=== PATIENT | female | born 1985 | race Two or more races ===

== ENCOUNTER 2018-10-01 09:00 | Inpatient (IN) | payer BC ==
[2018-10-01] MEDS: LACTATED RINGER'S 1,000 ML IV ×2 (09:30→22:58)
[2018-10-01] MEDS ORDERED: CEFAZOLIN 2 GM/50 ML (PMX) 50 ML IVPB ×2 (09:50→10:00)
[2018-10-01] MEDS ORDERED: EPHEDrine 25 MG/5 ML SYG (09:51)
[2018-10-01] MEDS ORDERED: PHENYLephrine (100 MCG/ML) 5ML SYG (09:51)
[2018-10-01] MEDS ORDERED: OXYTOCIN 30 UNITS/LR 500 ML BAG IV (09:51)
[2018-10-01] MEDS ORDERED: morphine SULFATE/PF (10 MG/10 ML) INJ (09:51)
[2018-10-01 09:53] LABS: ADD MAN DIFF? NO
[2018-10-01 09:54] LABS: WHITE BLOOD COUNT 7.3 10^3/ul (4.8-10.8)
[2018-10-01 09:54] LABS: BASOPHILS % 0.4 % (0.0-2.0); EOSINOPHILS # 0.1 10^3/ul (0.0-0.5); EOSINOPHILS % 1.8 % (0.0-7.0); HEMATOCRIT 35.9 % (37.0-47.0); HEMOGLOBIN 11.9 g/dl (12.0-16.0); LYMPHOCYTES # 1.3 10^3/ul (0.8-2.9); LYMPHOCYTES % 17.2 % (15.0-51.0); MEAN CORPUSCULAR HEMOGLOBIN 31.2 pg (29.0-33.0); MEAN CORPUSCULAR HGB CONC 33.1 g/dl (32.0-37.0); MEAN PLATELET VOLUME 12.7 fl (7.4-10.4); MONOCYTE # 0.4 10^3/ul (0.3-0.9); MONOCYTES % 5.8 % (0.0-11.0); NEUTROPHIL # 5.4 10^3/ul (1.6-7.5); NEUTROPHILS % 74.5 % (39.0-77.0); PLATELET COUNT 127 10^3/UL (140-415); RED BLOOD COUNT 3.82 10^6/ul (4.20-5.40); RED CELL DISTRIBUTION WIDTH 13.1 % (11.5-14.5)
[2018-10-01] MEDS ORDERED: MISOPROSTOL 200 MCG TAB PR ×2 (10:00→11:30)
[2018-10-01] MEDS ORDERED: CARBOPROST 250 MCG INJ IM ×2 (10:00→11:30)
[2018-10-01] MEDS ORDERED: OXYTOCIN 30 UNITS/LR 500 ML IV ×2 (10:00→11:30)
[2018-10-01] MEDS ORDERED: METHYLERGONOVINE 0.2 MG INJ IM ×2 (10:00→11:30)
[2018-10-01 10:13] LABS: INR 0.86; PARTIAL THROMBOPLASTIN TIME 28.6 Sec (23.0-35.0); PROTIME 11.8 Sec (11.9-14.9); PT RATIO 0.9
[2018-10-01] MEDS ORDERED: METOCLOPRAMIDE 10 MG INJ IV (10:30)
[2018-10-01] MEDS ORDERED: FENTAnyl 50 MCG/ML VIAL IV ×2 (10:30)
[2018-10-01] MEDS ORDERED: DIPHENHYDRAMINE 50 MG INJ IV ×2 (10:30)
[2018-10-01] MEDS ORDERED: HYDROmorphONE 1 MG/5 ML IV SYRINGE IV ×2 (10:30)
[2018-10-01] MEDS ORDERED: ONDANSETRON 4 MG INJ IV ×2 (10:30)
[2018-10-01] MEDS ORDERED: KETOROLAC 30 MG INJ IV (10:30)
[2018-10-01] MEDS ORDERED: ALBUTEROL 0.083% (NEB) 2.5 MG/3 ML AMP HHN (10:30)
[2018-10-01] MEDS ORDERED: NALOXONE (0.4 MG/ML) INJ IV (10:30)
[2018-10-01] MEDS ORDERED: HYDROmorphONE 0.5 MG/0.5 ML SYG IV ×2 (10:30)
[2018-10-01] MEDS ORDERED: ONDANSETRON 4 MG INJ (10:31)
[2018-10-01] MEDS: OXYTOCIN 30 UNITS/LR 500 ML IV ×2 (11:21→12:32)
[2018-10-01 11:28] LABS: HEPATITIS B SURFACE ANTIGEN NEGATIVE (NEGATIVE)
[2018-10-01] MEDS ORDERED: NACL 0.9% 3 ML SYG IV (11:30)
[2018-10-01] MEDS: CEFAZOLIN 2 GM/50 ML (PMX) 50 ML IVPB ×2 (11:30→19:49)
[2018-10-01] MEDS: IBUPROFEN 600 MG TAB PO ×2 (12:00→18:00)
[2018-10-01] MEDS: LANOLIN HPA 1 PKT TOP (19:49)
[2018-10-01 22:15] LABS: RAPID PLASMA REAGIN NONREACTIVE (NR)
[2018-10-02] MEDS: KETOROLAC 30 MG INJ IV ×2 (03:12→09:57)
[2018-10-02] MEDS: CEFAZOLIN 2 GM/50 ML (PMX) 50 ML IVPB ×2 (03:52→09:56)
[2018-10-02] MEDS: IBUPROFEN 600 MG TAB PO ×5 (06:00→23:48)
[2018-10-02] MEDS: LACTATED RINGER'S 1,000 ML IV (06:00)
[2018-10-02 08:13] LABS: ADD MAN DIFF? NO
[2018-10-02 08:19] LABS: BASOPHILS % 0.3 % (0.0-2.0); EOSINOPHILS # 0.2 10^3/ul (0.0-0.5); HEMATOCRIT 31.8 % (37.0-47.0); HEMOGLOBIN 10.3 g/dl (12.0-16.0); LYMPHOCYTES # 1.3 10^3/ul (0.8-2.9); LYMPHOCYTES % 12.8 % (15.0-51.0); MEAN CORPUSCULAR HEMOGLOBIN 31.1 pg (29.0-33.0); MEAN CORPUSCULAR HGB CONC 32.4 g/dl (32.0-37.0); MEAN CORPUSCULAR VOLUME 96.1 fl (82.0-101.0); MEAN PLATELET VOLUME 12.6 fl (7.4-10.4); MONOCYTE # 0.4 10^3/ul (0.3-0.9); MONOCYTES % 4.5 % (0.0-11.0); NEUTROPHIL # 7.8 10^3/ul (1.6-7.5); PLATELET COUNT 120 10^3/UL (140-415); RED BLOOD COUNT 3.31 10^6/ul (4.20-5.40)
[2018-10-02 08:19] LABS: WHITE BLOOD COUNT 9.7 10^3/ul (4.8-10.8)
[2018-10-02] MEDS: OXYCODONE/ACETAMINOPHEN (5/325) TAB PO ×2 (16:08→21:01)
[2018-10-02] MEDS: FERROUS SULFATE (EC) 325 MG TAB PO (21:01)
[2018-10-03] MEDS: IBUPROFEN 600 MG TAB PO ×3 (06:21→17:29)
[2018-10-03] MEDS: FERROUS SULFATE (EC) 325 MG TAB PO ×2 (08:27→21:23)
[2018-10-04] MEDS: IBUPROFEN 600 MG TAB PO ×3 (00:22→12:35)
[2018-10-04] MEDS: FERROUS SULFATE (EC) 325 MG TAB PO (09:46)
[2018-10-04] MEDS: BISACODYL 10 MG SUPP PR (12:35)
== END 2018-10-04 15:15 | disposition home or self-care (01) | DRG 788 ==
LOC: L-D 09:00 → PP1 15:04
PROVIDERS: Obstetrics & Gynecology
PROC: 10D00Z1 Extraction of Products of Conception, Low, Open Approach (ICD-10-PCS; principal; 2018-10-01 10:30)
DX: O65.5 Obstructed labor due to abnormality of maternal pelvic organs (principal); O34.211 Maternal care for low transverse scar from previous cesarean delivery; Z3A.39 39 weeks gestation of pregnancy; Z37.0 Single live birth
CPT/HCPCS: 85025; 85610; 85730; 86592; 86850; 86900; 86901; 87340; 99464